=== PATIENT | male | born 1965 | race Caucasian/White ===

== ENCOUNTER 2019-01-17 18:50 | Emergency (ER) | payer BC, OTHER ==
[~2019-01-17] VITALS: Ht 165.1 cm; Wt 108.9 kg
[2019-01-17 19:07] VITALS: BP 174/81
--- NOTE | 2019-01-17 19:50 | PHYS DOC ---
Past History Past Medical History: Other Past Surgical History: Tonsillectomy, Other Alcohol Use: None Drug Use: None Adult General Chief Complaint Chief Complaint: KNEE INJURY [facility] HPI 53-year-old male presents with left knee pain. The patient started to have some minor knee pain Friday night. During the day Friday, the pain seemed to increase. He describes it as a throbbing pressure in the central part of the knee. He had difficulty sleeping last night and it continues to hurt today. The patient has taken some ibuprofen only about once a day. He has also tried a heating pad without relief. The patient states the pain feels somewhat like his gout flares, but is never had gout in his knee. His gout is usually in his right foot. She denies any falls or trauma. 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 He does not remember tweaking the knee but admits it's possible. Patient denies numbness, tingling, swelling, loss of strength. No fever or chills. Review of Systems Review of Systems Constitutional: Denies fever or chills [] Eyes: Denies change in visual acuity, redness, or eye pain [] HENT: Denies nasal congestion or sore throat [] Respiratory: Denies cough or shortness of breath [] Cardiovascular: No additional information not addressed in HPI [] GI: Denies abdominal pain, nausea, vomiting, bloody stools or diarrhea [] : Denies dysuria or hematuria [] Musculoskeletal: Left knee pain[] Integument: Denies rash or skin lesions [] Neurologic: Denies headache, focal weakness or sensory changes [] Endocrine: Denies polyuria or polydipsia [] All other systems were reviewed and found to be within normal limits, except as documented in this note. Allergies Allergies Allergies Coded Allergies Type Severity Reaction Last Updated Verified No Known Drug Allergies 01/08/15 No Physical Exam Physical Exam Constitutional: Well developed, well nourished, no acute distress, non-toxic appearance. [] HENT: Normocephalic, atraumatic, bilateral external ears normal, oropharynx moist, no oral exudates, nose normal. [] Eyes: PERRLA, EOMI, conjunctiva normal, no discharge. [] Neck: Normal range of motion, no tenderness, supple, no stridor. [] Cardiovascular:Heart rate regular rhythm, no murmur [] Lungs & Thorax: Bilateral breath sounds clear to auscultation [] Abdomen: Bowel sounds normal, soft, no tenderness, no masses, no pulsatile masses. [] Skin: Warm, dry, no erythema, no rash. [] Back: No tenderness, no CVA tenderness. [] Extremities: Mild tenderness of the lateral joint line, minimal swelling, no ecchymosis or obvious deformity. Solid end feel of ligaments. No pain with varus or valgus. Anterior and posterior drawer negative.[] Neurologic: Alert and oriented X 3, normal motor function, normal sensory function, no focal deficits noted. [] Psychologic: Affect normal, judgement normal, mood normal. [] Current Patient Data Vital Signs Vital Signs Date Time Temp Pulse Resp B/P (MAP) Pulse Ox O2 Delivery O2 Flow Rate FiO2 01/17/19 19:07 97.4 74 18 99 Room Air EKG EKG [] Radiology/Procedures Radiology/Procedures [] Course & Med Decision Making Course & Med Decision Making Pertinent Labs and Imaging studies reviewed. (See chart for details) I believe the patient has just strained his knee. I've advised that he take 600 mg of ibuprofen 3 times a day for the next few days. If this does not improve within 5 days, he should consider further evaluation by orthopedics. It is possible that he has a meniscal injury. Patient states verbal understanding. He is stable for discharge at this time. [] Dragon Disclaimer Dragon Disclaimer This electronic medical record was generated, in whole or in part, using a voice recognition dictation system. Departure Departure: Impression: Primary Impression: Strain of left knee Disposition: 01 HOME/RESIDENCE PRIOR TO ADM Condition: STABLE Referrals: MARILY KELLY MD (PCP) Patient Instructions: Knee Pain, [id number] Additional Instructions: Please take 600 mg of ibuprofen every 8 hours for 3-5 days. If her pain is not improving, you should follow up with her primary care physician and discuss a referral to orthopedics. Problem Qualifiers Primary Impression: Strain of left knee Encounter type: initial encounter Qualified Codes: S86.912A - Strain of unspecified muscle(s) and tendon(s) at lower leg level, left leg, initial encounter MASON ARROYO DO Jan 17, 2019 19:50
--- NOTE | 2019-01-17 20:07 | RAD ---
EXAM: LEFT KNEE, 3 VIEWS. HISTORY: Left knee pain a limited range of motion. COMPARISON: None. FINDINGS: No fractures are identified. Joint spaces are maintained. Alignment is normal. There is a moderate to large joint effusion. IMPRESSION: 1. Moderate to large joint effusion. Electronically signed by: Cassandra Lujan MD (01/17/2019 8:04 PM) [facility]
== END 2019-01-17 19:55 | disposition home or self-care (01) ==
LOC: ER 18:50
DX: S86.912A Strain of unspecified muscle(s) and tendon(s) at lower leg level, left leg, initial encounter (principal); X58.XXXA Exposure to other specified factors, initial encounter; Y93.89 Activity, other specified; Y92.89 Other specified places as the place of occurrence of the external cause; Y99.8 Other external cause status
CPT/HCPCS: 73564; 99284

== ENCOUNTER 2020-10-11 18:57 | Emergency (ER) | payer BC, OTHER ==
[~2020-10-11] VITALS: Ht 165.1 cm; Wt 108.8 kg
[2020-10-11 19:22] VITALS: BP 140/76
--- NOTE | 2020-10-11 20:13 | PHYS DOC ---
Past History Past Medical History: Hypertension, Other Past Surgical History: Tonsillectomy, Other Additional Past Surgical Histo: right rotator cuff Alcohol Use: None Drug Use: None Adult General Chief Complaint Chief Complaint: EARACHE/EAR PAIN HPI HPI Patient is a 55-year-old male, otherwise healthy presents with bleeding from the left ear. States he woke up this morning and had a little bit of blood coming out of his left ear. States he called his primary care physician and was directed to the ED. Denies any recent travel, traumas, headache, changes in h earing, changes in vision, jaw pain, pain or trouble swallowing, illnesses, fevers, numbness/weakness/tingling, balance issues. States he feels well and it actually does not cause him any pain at all. States he is up-to-date on his tetanus vaccination. Review of Systems Review of Systems Review of systems otherwise unremarkable except noted in HPI Allergies Allergies Allergies Coded Allergies Type Severity Reaction Last Updated Verified No Known Drug Allergies 10/11/20 No Physical Exam Physical Exam Constitutional: Well developed, well nourished, no acute distress, non-toxic appearance. [] HENT: Normocephalic, atraumatic, oropharynx moist, no oral exudates, nose normal. Right ear normal. Left ear with what appears to be a scratch/abrasion on the bottom of the canal that is scabbed over, some dried blood on the posterior side of the tympanic membrane. Tympanic membrane otherwise clear except for a tiny spot in the center that appears to be a very small per foration. Patient denies any change in hearing or pain. Eyes: PERRLA, EOMI, conjunctiva normal, no discharge. [] Neck: Normal range of motion, no tenderness, supple, no stridor. [] Cardiovascular:Heart rate regular rhythm, no murmur [] Lungs & Thorax: Bilateral breath sounds clear to auscultation [] Neurologic: Alert and oriented X 3, normal motor function, normal sensory function, able to sit, stand and walk without issue, no focal deficits noted. [] Psychologic: Affect normal, judgement normal, mood normal. [] Current Patient Data Vital Signs Vital Signs Date Time Temp Pulse Resp B/P (MAP) Pulse Ox O2 Delivery O2 Flow Rate FiO2 10/11/20 19:22 98.1 73 20 140/76 (97) 16 Room Air EKG EKG [] Radiology/Procedures Radiology/Procedures [] Heart Score C/O Chest Pain: No Risk Factors: Risk Factors: DM, Current or recent (<one month) smoker, HTN, HLP, family history of CAD, obesity. Risk Scores: Risk Factors: DM, Current or recent (<one month) smoker, HTN, HLP, family history of CAD, obesity. Course & Med Decision Making Course & Med Decision Making Patient is a 55-year-old male who presents with bleeding from the left ear Vital signs not concerning. Physical exam noted above. It appears that patient has a small scratch in the canal and a tiny possible perforation in the middle of the tympanic membrane. Hearing is normal. Patient with no other medical complaints and no pain. Discussed all findings with patient and advised not to stick anything in his ear. Advised to call his primary care physician first thing in the morning to update on ED visit and set up a follow-up visit in 5 to 7 days for repeat examination. Gave strict return precautions to the ED. Patient grateful, verbalized understanding and agreed with plan of discharge. [] Dragon Disclaimer Dragon Disclaimer This electronic medical record was generated, in whole or in part, using a voice recognition dictation system. Departure Departure: Impression: Primary Impression: Tympanic membrane central perforation Additional Impression: Ear canal abrasion Disposition: 01 HOME / SELF CARE / HOMELESS Condition: GOOD Referrals: MARILY KELLY MD (PCP) Patient Instructions: Tympanic Membrane Perforation-SportsMed Problem Qualifiers CARMEN MOTTA MD October 11, 2020 20:13
== END 2020-10-11 20:28 | disposition home or self-care (01) ==
LOC: ER 18:57
DX: S00.412A Abrasion of left ear, initial encounter (principal); H72.02 Central perforation of tympanic membrane, left ear; I10 Essential (primary) hypertension; X58.XXXA Exposure to other specified factors, initial encounter; Y93.89 Activity, other specified; Y92.89 Other specified places as the place of occurrence of the external cause; Y99.8 Other external cause status
CPT/HCPCS: 99281